=== PATIENT | female | born 1985 | race Caucasian/White ===

== ENCOUNTER 2016-06-27 10:37 | Emergency (ER) | payer BC ==
[~2016-06-27] VITALS: Wt 74.0 kg
[~2016-06-27 10:37] MED LIST: ALBU90AE INHALATION; CALC-176 PO; PRENAT PO
--- NOTE | 2016-06-27 12:29 | ERD ---
ER Documentation Chief Complaint Date/Time DATE: 06/27/16 TIME: 12:25 Chief Complaint left breast pain for 2 days with fever. no drainage but tender on breast HPI This patient is a Ab0 LC 30-year-old female with no significant medical history presenting to the emergency department for bilateral breast pain which is been ongoing in her medically for the past 2 days. She rates her pain an 8 out of 10 on the pain scale. Patient did have a on May 12, 2016 and has been breast-feeding daily ever since. The patient went to see her provider at [facility] this morning. She saw provider Nay Bettencourt nurse practitioner who is concerned for possible mastitis and/ or sepsis. The patient had a temperature of 103.4F in the clinic and was given 1 g of Tylenol. The patient states she is feeling better after arriving in the emergency department. She denies any nausea, vomiting, diarrhea, urinary symptoms, or other symptoms at this time. ROS All systems reviewed and are negative except as per history of present illness. Medications Home Meds Active Scripts Cephalexin* (Keflex*) 500 Mg Capsule, 500 MG PO TID for 7 Days, #21 CAP Prov:VASYL DOS SANTOS PA-C 06/27/16 Reported Medications Albuterol Sulfate (Proair Respiclick) 90 Mcg Aer.pow.ba, 2 PUFFS INHALATION Q6 Y for SHORTNESS OF BREATH, #1 BOTTLE 05/11/16 Calcium Cmb 2-Mag Cmb 12-Vit D3 (Calcium 500) 1 Each Tablet, 1 TAB PO DAILY, TAB 05/11/16 Multivit/Min/Fol Ac/Iron/Pren* ( S*) 1 Tab Tab, 1 TAB PO DAILY, TAB 04/25/16 Allergies Allergies: Coded Allergies: No Known Allergy (Unverified , 09/29/15) PMhx/Soc History of Surgery: Yes ( section) Anesthesia Reaction: No Hx Neurological Disorder: No Hx Respiratory Disorders: No Hx Cardiac Disorders: No Hx Psychiatric Problems: No Hx Miscellaneous Medical Probl: No Hx Alcohol Use: No Hx Substance Use: No Hx Tobacco Use: No FmHx Noncontributory for chief complaint Physical Exam Vitals Vital Signs Date Time Temp Pulse Resp B/P Pulse Ox O2 Delivery O2 Flow Rate FiO2 06/27/16 14:30 98.2 06/27/16 10:40 99.8 121 20 104/66 98 Physical Exam INITIAL VITAL SIGNS: Reviewed by me. GENERAL: Alert and interactive. No acute distress. HEAD: Head is normocephalic and atraumatic. EYES: EOMI. No scleral icterus. No conjunctival injection. ENT: Moist mucosa. NECK: Supple. Full range of motion. RESPIRATORY: Normal respiratory effort. Clear breath sounds bilaterally. No wheezing, rales, or rhonchi. CV: Regular rate and rhythm. Normal S1 S2. No S3 or S4. No murmurs. BREAST: There is tenderness to palpation near the 6 o'clock position of bilateral breasts without erythema, warmth, or edema. ABDOMEN: Soft, non-distended, non-tender. No guarding. No rebound. No masses. EXTREMITIES: No deformity. SKIN: Warm and dry. NEUROLOGIC: Alert and oriented x 4. Speech is normal. Moves all extremities equally. No motor or sensory deficits noted. Result Diagram: 06/27/16 1240 06/27/16 1240 Results 24 hrs Laboratory Tests Test 06/27/16 12:40 Alanine Aminotransferase (ALT/SGPT) 124IU/L Albumin 4.3g/dl Albumin/Globulin Ratio 1.13 Alkaline Phosphatase 126IU/L Anion Gap 19 Aspartate Amino Transf (AST/SGOT) 53IU/L Basophils # 0.010^3/ul Basophils % 0.4% Blood Morphology Comment Blood Urea Nitrogen 15mg/dl Calcium Level 9.1mg/dl Carbon Dioxide Level 24mmol/L Chloride Level 102mmol/L Creatinine 0.67mg/dl Direct Bilirubin 0.00mg/dl Eosinophils # 0.410^3/ul Eosinophils % 3.3% Globulin 3.80g/dl Glucose Level 88mg/dl Hematocrit 40.8% Hemoglobin 13.7g/dl Indirect Bilirubin 1.6mg/dl Lactic Acid Level 0.8mmol/L Lymphocytes # 1.710^3/ul Lymphocytes % 12.6% Mean Corpuscular Hemoglobin 28.0pg Mean Corpuscular Hemoglobin Concent 33.7g/dl Mean Corpuscular Volume 83.2fl Mean Platelet Volume 8.5fl Monocytes # 0.810^3/ul Monocytes % 5.9% Neutrophils # 10.510^3/ul Neutrophils % 77.8% Nucleated Red Blood Cells # 0.010^3/ul Nucleated Red Blood Cells % 0.0/100WBC Platelet Count 93486^3/UL Potassium Level 3.7mmol/L Red Blood Count 4.9010^6/ul Red Cell Distribution Width 13.1% Sodium Level 141mmol/L Total Bilirubin 1.6mg/dl Total Protein 8.1g/dl Urine Bacteria FEW Urine Bilirubin NEGATIVE Urine Clarity CLEAR Urine Color LT. YELLOW Urine Epithelial Cells FEW Urine Glucose NEGATIVE% Urine Hemoglobin TRACE Urine Ketones NEGATIVE Urine Leukocyte Esterase 1+ Urine Microscopic RBC 0-2/HPF Urine Microscopic WBC 0-2/HPF Urine Nitrite NEGATIVE Urine Specific [place] 1.010 Urine Total Protein NEGATIVE Urine Urobilinogen 0.2 E.U./dL Urine pH 6.0 White Blood Count 13.510^3/ul Current Medications Medications (Trade) Dose Ordered Sig/Janice Route PRN Reason Start Time Stop Time Status Last Admin Dose Admin Sodium Chloride 1,000 ml @ 1,000 mls/hr Q1H ONCE IV 06/27/16 12:30 06/27/16 13:29 DC 06/27/16 12:30 Ceftriaxone Sodium (Rocephin) 50 ml @ 100 mls/hr ONCE ONCE IVPB 06/27/16 12:30 06/27/16 12:59 DC 06/27/16 12:34 Procedures/MDM EMERGENCY DEPARTMENT COURSE / MEDICAL DECISION MAKING: This is a 30-year-old female who comes to the emergency room secondary to complaints of bilateral breast pain and fevers for 2 days. The patient was given 1 g IV Rocephin and 1 L normal saline IV fluids in the department. On re-evaluation, the patient was feeling improved. Lab results reviewed and showed slight leukocytosis with left shift. Urinalysis showed results consistent with urinary tract infection. All other lab studies showed no significant acute abnormalities. Radiology: PROCEDURE: XR Chest. CLINICAL INDICATION: Cough and fever. Sepsis. TECHNIQUE: Single frontal view. COMPARISON: None. FINDINGS: The lungs are clear. The heart size is normal. There is no pleural effusion. There is no pneumothorax. IMPRESSION: 1. Normal chest radiograph. PROCEDURE: Bilateral breast ultrasound. CLINICAL INDICATION: Breast pain and tenderness, fibrocystic disease of breast TECHNIQUE: Bilateral whole breast, 4 quadrant and retroareolar, and axillary sonography was performed. COMPARISON: None FINDINGS: No solid or suspicious masses. No areas of architectural distortion. No malignant adenopathy. No dominant cysts are present. IMPRESSION: No sonographic evidence of malignancy in either breast. ACR BIRADS 1 NEGATIVE Routine annual follow-up is suggested. PROCEDURE: US Pelvis. CLINICAL INDICATION: Pelvic pain. TECHNIQUE: The pelvis was evaluated with transabdominal and transvaginal sonography in the axial and sagittal planes. COMPARISON: No prior study is available for comparison. FINDINGS: Uterus: 9.2 x 3.6 x 4.6 cm. Endometrium: 6.4 mm. Right ovary: 3.5 x 2.0 x 2.6 cm. Left ovary: 3.4 x 1.8 x 2.0 cm. Uterine masses: None. Ovarian masses: None. Color Doppler and pulsed Doppler sonography demonstrate normal flow to the ovaries. Other pelvic masses: None. Free fluid: None. IMPRESSION: 1. Normal pelvic ultrasound. The primary diagnosis is urinary tract infection. Secondary diagnosis is bilateral breast pain I have low suspicion for pneumonia, bronchitis, sepsis, breast malignancy, mastitis, or other emergencies at this time. Discharge: I have discussed the lab results and diagnostic findings with the patient and answered any questions or concerns. The patient was discharged with a prescription for cephalexin. The patient was advised to followup with their PMD in 1-2 days and to return to the Emergency Department if there are any new or worsening symptoms. The patient understood and agreed with the diagnosis, treatment and plan. The patient is stable for discharge at this time. Departure Diagnosis: Primary Impression: Urinary tract infection Additional Impression: Breast pain Condition: Stable Additional Instructions: No mas mejor en 2-3 lomeli, regresar. Mas peor en 24 horas, regresear rapidamente. Ir a doctor primario in 5-7 lomeli. Usar instrucciones cuando mike medicamento. VASYL DOS SANTOS PA-C Jun 27, 2016 12:29
[2016-06-27] MEDS ORDERED: SOD CHLORIDE 0.9% 1,000 ML IV ONE (12:30)
[2016-06-27] MEDS ORDERED: CEFTRIAXONE 1 GM/50 ML (PMX) 50 ML IVPB ONE (12:30)
--- NOTE | 2016-06-27 12:49 | RADRPT ---
PROCEDURE: XR Chest. CLINICAL INDICATION: Cough and fever. Sepsis. TECHNIQUE: Single frontal view. COMPARISON: None. FINDINGS: The lungs are clear. The heart size is normal. There is no pleural effusion. There is no pneumothorax. IMPRESSION: 1. Normal chest radiograph. RPTAT: QQ .Florian Hernandez MD, MD Date Time Electronically viewed and signed by .Florian Hernandez MD, on 06/27/2016 12:48 .R/
[2016-06-27 13:12] LABS: ALBUMIN 4.3 g/dl (3.3-4.9)
[2016-06-27 13:13] LABS: BASOPHILS % 0.4 % (0.0-2.0); EOSINOPHILS # 0.4 10^3/ul (0.0-0.5); EOSINOPHILS % 3.3 % (0.0-7.0); HEMATOCRIT 40.8 % (37.0-47.0); HEMOGLOBIN 13.7 g/dl (12.0-16.0); LYMPHOCYTES # 1.7 10^3/ul (0.8-2.9); LYMPHOCYTES % 12.6 % (15.0-51.0); MEAN CORPUSCULAR HGB CONC 33.7 g/dl (32.0-37.0); MEAN CORPUSCULAR VOLUME 83.2 fl (82.0-101.0); MEAN PLATELET VOLUME 8.5 fl (7.4-10.4); MONOCYTE # 0.8 10^3/ul (0.3-0.9); MONOCYTES % 5.9 % (0.0-11.0); NEUTROPHIL # 10.5 10^3/ul (1.6-7.5); NEUTROPHILS % 77.8 % (39.0-77.0); PLATELET COUNT 251 10^3/UL (140-440); POTASSIUM 3.7 mmol/L (3.5-5.1); RED CELL DISTRIBUTION WIDTH 13.1 % (11.5-14.5); UNCORRECTED WBC 13.5 10^3/ul (4.8-10.8); WHITE BLOOD COUNT 13.5 10^3/ul (4.8-10.8)
[2016-06-27 13:15] LABS: ALBUMIN/GLOBULIN RATIO 1.13; BILIRUBIN,INDIRECT 1.6 mg/dl (0-1.1); BILIRUBIN,TOTAL 1.6 mg/dl (0.2-1.3); CREATININE 0.67 mg/dl (0.44-1.00); TOTAL PROTEIN 8.1 g/dl (6.1-8.1)
[2016-06-27 13:16] LABS: CALCIUM 9.1 mg/dl (8.4-10.2)
[2016-06-27 13:23] LABS: CONDITION 1
--- NOTE | 2016-06-27 13:32 | RADRPT ---
PROCEDURE: US Pelvis. CLINICAL INDICATION: Pelvic pain. TECHNIQUE: The pelvis was evaluated with transabdominal and transvaginal sonography in the axial a nd sagittal planes. COMPARISON: No prior study is available for comparison. FINDINGS: Uterus: 9.2 x 3.6 x 4.6 cm. Endometrium: 6.4 mm. Right ovary: 3.5 x 2.0 x 2.6 cm. Left ovary: 3.4 x 1.8 x 2.0 cm. Uterine masses: None. Ovarian masses: None. Color Doppler and pulsed Doppler sonography demonstrate normal flow to the ova gloria. Other pelvic masses: None. Free fluid: None. IMPRESSION: 1. Normal pelvic ultrasound. RPTAT: QQ .Florian Hernandez MD, MD Date Time Electronically viewed and signed by .Florian Hernandez MD, on 06/27/2016 13:32 .R/
--- NOTE | 2016-06-27 13:37 | RADRPT ---
PROCEDURE: Bilateral breast ultrasound. CLINICAL INDICATION: Breast pain and tenderness, fibrocystic disease of breast TECHNIQUE: Bilateral whole breast, 4 quadrant and retroareolar, and axillary sonography was perfor med. COMPARISON: None FINDINGS: No solid or suspicious masses. No areas of architectural distortion. No malignant adenopathy. No dominant cysts are present. IMPRESSION: No sonographic evidence of malignancy in either breast. ACR BIRADS 1 NEGATIVE Routine annual follow-up is suggested. RPTAT: EE .María Sims MD, Date Time Electronically viewed and signed by .Mraía Sims MD, MD on 06/27/2016 13:36 .F/
[2016-06-27 13:42] LABS: ADD UMIC YES; URINE BILIRUBIN (Dip) NEGATIVE (NEGATIVE); URINE BLOOD (Dip) TRACE (NEGATIVE); URINE COLOR LT. YELLOW (YELLOW); URINE GLUCOSE (Dip) NEGATIVE (NEGATIVE); URINE KETONES (Dip) NEGATIVE (NEGATIVE); URINE LEUKOCYTE ESTERASE (Dip) 1+ (NEGATIVE); URINE NITRITE (Dip) NEGATIVE (NEGATIVE); URINE TOTAL PROTEIN (Dip) NEGATIVE (NEGATIVE); URINE UROBILINOGEN (Dip) 0.2 E.U./dL (0.1-1.0)
[2016-06-27 14:10] LABS: BACTERIA,URINE FEW; URINE RBCS 0-2 /HPF (0)
[2016-06-27] MEDS ORDERED: CEPH-443 PO (14:20)
[2016-06-27 14:30] VITALS: TEMP 98.2
== END 2016-06-27 14:30 | disposition home or self-care (01) ==
LOC: FTE 10:37
DX: N39.0 Urinary tract infection, site not specified (principal); R10.2 Pelvic and perineal pain
CPT/HCPCS: 36415; 71010; 76641; 76830; 76856; 80053; 81001; 83605; 85025; 87086; 96374; 99285; J0696; J7030; 81003

== ENCOUNTER 2016-09-21 15:05 | Emergency (ER) | payer BC ==
[~2016-09-21] VITALS: Ht 157.5 cm; Wt 77.5 kg
[~2016-09-21 15:05] MED LIST changes: +CEPH-443 PO
[2016-09-21 15:47] VITALS: Ht 157.5 cm; Wt 77.5 kg
[2016-09-21] MEDS ORDERED: IBUP-1542 PO (17:45)
--- NOTE | 2016-09-21 17:53 | ERD ---
ER Documentation Chief Complaint Date/Time DATE: 09/21/16 TIME: 17:46 Chief Complaint PT HAS ST AND JERNIGAN FEVER 101.6 HPI 31-year-old female complaining of sore throat 3 days, fever 2 days, and headache started today. She reports pain when swallowing. Headache is localized in the forehead and bilateral temporal region. She has photophobia. She took Tylenol at home for fever and pain, last dose was 4 hours ago. Patient reports nausea, but no vomiting or diarrhea. Denies cough or runny nose. Denies neck pain. Patient also reports feeling tired. ROS All systems reviewed and are negative except as per history of present illness. Medications Home Meds Active Scripts Ibuprofen* (Motrin*) 600 Mg Tab, 600 MG PO Q6H Y for PAIN AND OR ELEVATED TEMP, #30 TAB Prov:ANTHONY NETTLES [employer]SEM[employer] 09/21/16 Cephalexin* (Keflex*) 500 Mg Capsule, 500 MG PO TID for 7 Days, #21 CAP Prov:VASYL DOS SANTOS PA-C 06/27/16 Reported Medications Albuterol Sulfate (Proair Respiclick) 90 Mcg Aer.pow.ba, 2 PUFFS INHALATION Q6 Y for SHORTNESS OF BREATH, #1 BOTTLE 05/11/16 Calcium Cmb 2-Mag Cmb 12-Vit D3 (Calcium 500) 1 Each Tablet, 1 TAB PO DAILY, TAB 05/11/16 Multivit/Min/Fol Ac/Iron/Pren* ( S*) 1 Tab Tab, 1 TAB PO DAILY, TAB 04/25/16 Allergies Allergies: Coded Allergies: No Known Allergy (Unverified , 09/29/15) PMhx/Soc Medical and Surgical Hx: pt denies Medical Hx History of Surgery: Yes ( section) Anesthesia Reaction: No Hx Neurological Disorder: No Hx Respiratory Disorders: No Hx Cardiac Disorders: No Hx Psychiatric Problems: No Hx Miscellaneous Medical Probl: No Hx Alcohol Use: No Hx Substance Use: No Hx Tobacco Use: No Physical Exam Vitals Vital Signs Date Time Temp Pulse Resp B/P Pulse Ox O2 Delivery O2 Flow Rate FiO2 09/21/16 15:47 101.6 130 17 119/70 97 Physical Exam General impression: Well-developed, well-nourished. Alert, oriented, in no acute distress Head: Normocephalic, atraumatic. Eyes: PERRL, EOM normal. Sclerae are normal. Conjunctiva not injected. ENT: Nasal mucosa, oral mucosa and oropharynx are normal. No pharyngeal erythema, swelling, or exudates. Neck: Supple, nontender. No lymphadenopathy. No nuchal rigidity. Respiration: Normal respiratory effort. Lungs clear to auscultate bilaterally. No wheezes, rales or rhonchi. Cardiovascular: Regular rate and rhythm. No murmurs or extra heart sounds. Abdomen: Abdomen normal to inspection. Nontender. No masses or organomegaly. Bowel sounds normal. Back: Normal to inspection. No midline spine tenderness. No CVA tenderness. Extremities: Extremities normal to inspection, nontender. ROM normal. Neuro: Mental status normal, speech normal. MOLD SWABBER grossly intact. Skin: Normal turgor. No rash or lesions. Psych: Normal mood and affect. Results 24 hrs Current Medications Medications (Trade) Dose Ordered Sig/Janice Route PRN Reason Start Time Stop Time Status Last Admin Dose Admin Ibuprofen (Motrin) 600 mg ONCE ONCE PO 09/21/16 18:00 09/21/16 18:01 Procedures/MDM 31-year-old female presented ED was sore throat, fever, and headache. Ibuprofen given to the patient in the ED for fever and pain. I doubt that she has strep pharyngitis. Given her symptoms and exam findings, I suspect infectious mononucleosis. Low suspicion for peritonsillar or retropharyngeal abscess. Patient appears well, stable for discharge and outpatient management. Patient is advised to increase fluid intake, and rest. Medical decision making shared with patient and family. Education provided to patient and family. Patient and family expressed understanding of the plan. Medications on discharge: Ibuprofen. Follow-up: Primary care provider in 2-3 days or return to ED if worse. Departure Diagnosis: Primary Impression: Fever Fever type: unspecified Qualified Code: R50.9 - Fever, unspecified fever cause Additional Impression: Pharyngitis Pharyngitis/tonsillitis etiology: unspecified etiology Qualified Code: J02.9 - Pharyngitis, unspecified etiology Condition: Stable Patient Instructions: Fever Control (Adult), Pharyngitis, Viral Referrals: [facility] Usted se jernigan hecho un examen mdico de control que le indica que no est en martina condicin que requiera tratamiento urgente en el Departamento de Emergencia. Un estudio ms profundo y el tratamiento de michel condicin pueden esperar sin ningn riesgo hasta que usted sea atendida/o en el consultorio de michel mdico o martina cl miriam. Es responsabilidad suya arreglar martina ramiro para el seguimiento del zita. MANEJO DE CONDICIONES NO URGENTES EN EL FUTURO 1) Si usted tiene un mdico de atencin primaria: Usted debera llamar a michel mdico de atencin primaria antes de venir al departamento de emergencia. Despus de las horas de consultorio, michel doctor o michel asociado/a est disponible por telfono. El mdico o enfermero de macarena en el servicio telefnico puede asesorarle por yves medio para atender el problema, o zita contrario se puede programar martina ramiro. 2) Si usted no tiene un mdico de atencin primaria: Llame al mdico o clnica de referencia que aparece abajo suyapa las horas de consultorio para hacer martina ramiro para que le vean. CLINICAS: [facility] [phone] [facility] [phone] [facility]. [facility] [phone] [facility]. [place] [id number] [phone] [facility]. [place] [id number] [phone] [facility]. [phone] [address] Additional Instructions: Llame al doctor MAANA y tom martina RAMIRO PARA DENTRO DE 2-3 HAMMER.Dgale a la secretaria que nosotros le instruimos hacer esta ramiro.Avise o llame si michel condicin se empeora antes de la ramiro. Regresa aqui si peor o no mejor. ANTHONY NETTLES. DAVID Sep 21, 2016 17:53
[2016-09-21] MEDS ORDERED: IBUPROFEN 600 MG TAB PO ONE (18:00)
[2016-09-21 18:18] VITALS: BP 102/68; RESP 18
[2016-09-21] MEDS ORDERED: ACETAMINOPHEN 500 MG TAB PO STA (18:18)
[2016-09-21 19:26] VITALS: PULSE 118; TEMP 99.4
== END 2016-09-21 19:27 | disposition home or self-care (01) ==
LOC: FTE 15:05
DX: R50.9 Fever, unspecified (principal); J02.9 Acute pharyngitis, unspecified
CPT/HCPCS: 99283; Z7610

== ENCOUNTER 2017-05-11 11:59 | Inpatient (IN) | payer BC ==
[2017-05-11] VITALS (11 sets, daily range): BP systolic 95–109; BP diastolic 53–70; PULSE 64–87; RESP 13–32; Ht 157.5 cm; Wt 75.1 kg
[~2017-05-11] VITALS: Ht 157.5 cm; Wt 75.1 kg
[~2017-05-11 11:59] MED LIST changes: +IBUP-1542 PO; +LIDOCAINE 2% (SDV) 5 ML INJ ONE; +ONDANSETRON 4 MG INJ ONE; +ROCURONIUM 50 MG INJ ONE
[2017-05-11] MEDS ORDERED: ALBU18HF INHALATION (12:18)
[2017-05-11] MEDS ORDERED: PROPOFOL 100 ML ONE (15:38)
[2017-05-11] MEDS ORDERED: BUPIVACAINE 0.25% (MPF) 30 ML INJ ONE (15:40)
[2017-05-11] MEDS ORDERED: KETOROLAC 30 MG INJ IV PRN (16:00)
[2017-05-11] MEDS ORDERED: EPHEDrine SULFATE 50 MG/5 ML SYG IV PRN (16:00)
[2017-05-11] MEDS ORDERED: DIPHENHYDRAMINE 50 MG INJ IV PRN (16:00)
[2017-05-11] MEDS ORDERED: LABETALOL HCL 20MG INJ IV PRN (16:00)
[2017-05-11] MEDS ORDERED: MEPERIDINE 25 MG INJ IV PRN (16:00)
[2017-05-11] MEDS ORDERED: HYDROmorphONE (0.2 MG/ML) 10ML SYG IV PRN ×3 (16:00)
[2017-05-11] MEDS ORDERED: MIDAZOLAM 1 MG/ML 2 ML INJ IV PRN (16:00)
[2017-05-11] MEDS ORDERED: FENTAnyl 50 MCG/ML VIAL IV PRN ×3 (16:00)
[2017-05-11] MEDS ORDERED: OXYCODONE/ACETAMINOPHEN (5/325) TAB PO PRN ×2 (16:00)
[2017-05-11] MEDS ORDERED: hydrALAzine 20 MG INJ IV PRN (16:00)
[2017-05-11] MEDS ORDERED: METOCLOPRAMIDE 10 MG INJ IV PRN (16:00)
[2017-05-11] MEDS ORDERED: ONDANSETRON 4 MG INJ IV PRN (16:00)
[2017-05-11] MEDS ORDERED: ACETAMINOPHEN 1000MG/100ML IV 100 ML ONE (16:08)
[2017-05-11] MEDS: CEFAZOLIN 2 GM/50 ML (PMX) 50 ML IVPB SCH (16:10)
[2017-05-11] MEDS ORDERED: DEXAMETHASONE 4 MG/ML 1 ML INJ ONE (16:11)
[2017-05-11] MEDS ORDERED: CEFAZOLIN 1 GM INJ ONE (16:11)
--- NOTE | 2017-05-11 17:14 | OPR ---
Date/Time of Note Date/Time of Note DATE: 05/11/17 TIME: 17:09 Operative Report Procedure Date: May 11, 2017 Preoperative Diagnosis thyroid goiter with pressure symptoms and problems with swallowing Postoperative Diagnosis same Operation/Procedure Performed 1. total thyroidectomy 2. therapeutic injection subcutaneous local anesthesia Surgeon see signature line Marketing Project Lead cher elaine Anesthesia Type: general Estimated Blood Loss: 10 - 50 ml's Transfusion none Specimen total thyroid Grafts/Implants none Complications none Pt Condition Post Procedure: stable Indications This is a 31-year-old female with right thyroid nodule and goiter with pressure symptoms and difficulty breathing and swallowing. She requests surgical excision of her thyroid. Risks alternatives benefits and percent were discussed the patient. Patient expressed understanding consents to the operation. Procedure Description Patient is taken to the OR and prepped and draped in usual sterile fashion. Surgical timeout was performed. IV antibiotics given. Collar incision is made with a 15 blade. Dissection Carrs carried onto the platysma the platysma was divided and superior inferior platysmal flaps are created. Strap muscles were divided in the midline and retracted. On initial inspection right thyroid nodules observed with large goiter on the right side greater than the left also there is additional nodules on the left side of the thyroid which are firm. Careful dissection is performed initially on the right side. The middle thyroidal vein was ligated with a hand-held LigaSure. Superior pole and inferior pole were mobilized. Careful attention was paid to keep the recurrent laryngeal nerve out of harm's way. Ligament of Heredia was divided. Further dissection with hand-held LigaSure was performed juxtaposed to the capsule in order to avoid any injury to the nerves. The right thyroid was then resected and divided from the isthmus as there were multiple adhesions posteriorly to the trachea. This was sent as specimen with single short right superior double short right inferior poles with silk suture markings. Attention was then paid to the left thyroid. Superior and inferior poles were carefully dissected out including the ligament of Heredia was divided. The middle thyroidal vein was divided with a hand-held LigaSure. Careful dissection was performed juxtaposed to the thyroid to avoid any recurrent laryngeal nerve injury. The isthmus and left thyroid was sent and marked with single long for right superior pole double long for right inferior pole. There is good hemostasis in the surgical site. The surgical bed was irrigated with water and a Valsalva maneuver up to 40 cm of water was performed. There is no evidence of any leaking or bleeding. The irrigation was suctioned out. The strap muscles were reapproximated with interrupted 3-0 Vicryl. The platysma was reapproximated with interrupted 3-0 Vicryl. Skin was closed in a multilayer fashion with interrupted 3-0 Vicryl and running 4-0 Monocryl. Therapeutic subcutaneous local anesthesia was injected throughout the incision site Willy LAINEZ May 11, 2017 17:14
[2017-05-11] MEDS ORDERED: HYDROCODONE/APAP (5/325) TAB PO PRN (17:30)
[2017-05-11] MEDS ORDERED: MEPERIDINE 25 MG INJ ONE (17:33)
[2017-05-11] MEDS ORDERED: ONDANSETRON 4 MG INJ ONE (17:33)
[2017-05-11 18:16] LABS: BASOPHILS % 0.3 % (0.0-2.0); EOSINOPHILS # 0.1 10^3/ul (0.0-0.5); EOSINOPHILS % 1.2 % (0.0-7.0); HEMATOCRIT 34.4 % (37.0-47.0); HEMOGLOBIN 11.8 g/dl (12.0-16.0); LYMPHOCYTES # 1.1 10^3/ul (0.8-2.9); LYMPHOCYTES % 17.9 % (15.0-51.0); MEAN CORPUSCULAR HGB CONC 34.3 g/dl (32.0-37.0); MEAN CORPUSCULAR VOLUME 81.5 fl (82.0-101.0); MEAN PLATELET VOLUME 9.6 fl (7.4-10.4); MONOCYTE # 0.2 10^3/ul (0.3-0.9); MONOCYTES % 2.7 % (0.0-11.0); NEUTROPHIL # 4.6 10^3/ul (1.6-7.5); NEUTROPHILS % 77.7 % (39.0-77.0); PLATELET COUNT 228 10^3/UL (140-415); RED BLOOD COUNT 4.22 10^6/ul (4.20-5.40); RED CELL DISTRIBUTION WIDTH 12.7 % (11.5-14.5); WHITE BLOOD COUNT 5.9 10^3/ul (4.8-10.8)
[2017-05-11 18:38] LABS: ALBUMIN 3.2 g/dl (3.3-4.9); ALBUMIN/GLOBULIN RATIO 1.06; BILIRUBIN,INDIRECT 0.3 mg/dl (0-1.1); BILIRUBIN,TOTAL 0.3 mg/dl (0.2-1.3); CALCIUM 8.2 mg/dl (8.4-10.2); CREATININE 0.57 mg/dl (0.44-1.00); POTASSIUM 4.2 mmol/L (3.5-5.1); TOTAL PROTEIN 6.2 g/dl (6.1-8.1)
[2017-05-11] MEDS: SOD CHLORIDE 0.9% 1,000 ML IV SCH (19:00)
[2017-05-11] MEDS: morphine 2 MG INJ IV PRN (19:50)
--- NOTE | 2017-05-11 19:54 | HP ---
Date/Time of Note Date/Time of Note DATE: 05/11/17 TIME: 19:38 Assessment/Plan VTE Prophylaxis VTE Prophylaxis Intervention: other Lines/Catheters IV Catheter Type (from Nrsg): Peripheral IV Assessment/Plan Assessment/Plan 1. total thyroidectomy - PER SURGERY - ivf - pain meds 2.Asthma [address] Horton/staff HPI/ROS Admit Date/Time Admit Date/Time May 11, 2017 at 17:08 ROS This is a 31-year-old female with right thyroid nodule and goiter with pressure symptoms and difficulty breathing and swallowing. PMH/Family/Social Past Medical History asthma Social History Alcohol Use: none Smoking Status: Never smoker Drug Use: none Exam/Review of Systems Vital Signs Vitals Vital Signs Date Time Temp Pulse Resp B/P Pulse Ox O2 Delivery O2 Flow Rate FiO2 05/11/17 18:45 87 18 108/67 100 Room Air 05/11/17 17:28 98.2 Exam Constitutional: alert, well developed Neck: other (DDI) Respiratory: diminished breath sounds, normal air movement Cardiovascular: nl pulses Gastrointestinal: non-tender, soft Labs Result Diagram: 05/11/17 1808 05/11/17 180 Medications Medications Current Medications Cefazolin Sodium/ Dextrose (Ancef 2 Gm/50 ml (Pmx)) 50 ml @ 100 mls/hr Q8H IVPB ; Start 05/11/17 at 17:30; Stop 05/12/17 at 17:29 Morphine Sulfate (morphine) 2 mg Q2H PRN IV PAIN LEVEL 6-10; Start 05/11/17 at 17:30 Acetaminophen/ Hydrocodone Bitart 1 tab 1 tab Q6H PRN PO PAIN LEVEL 6-10; Start 05/11/17 at 17:30 Sodium Chloride (NS) 1,000 ml @ 100 mls/hr Q10H IV ; Start 05/11/17 at 17:08 THERESA RIVERO May 11, 2017 19:48
[2017-05-11] MEDS: ALBUTEROL 0.083% (NEB) 2.5 MG/3 ML AMP HHN SCH (20:53)
[2017-05-12] MEDS ORDERED: ONDANSETRON 4 MG INJ IV PRN
[2017-05-12] MEDS: morphine 2 MG INJ IV PRN (00:06)
[2017-05-12] MEDS: SOD CHLORIDE 0.9% 1,000 ML IV SCH ×2 (00:07→13:08)
[2017-05-12 00:34] VITALS: BP 110/68; RESP 20
[2017-05-12] MEDS: ALBUTEROL 0.083% (NEB) 2.5 MG/3 ML AMP HHN SCH ×3 (01:18→12:46)
[2017-05-12] MEDS: CEFAZOLIN 2 GM/50 ML (PMX) 50 ML IVPB SCH ×2 (01:25→09:22)
[2017-05-12] MEDS: ACETAMINOPHEN 325 MG TAB PO PRN ×2 (01:34→07:06)
[2017-05-12 06:00] VITALS: BP 117/62; PULSE 96; RESP 18
[2017-05-12 06:18] LABS: ABNORMAL IP MESSAGE 1; BASOPHILS % 0.2 % (0.0-2.0); HEMATOCRIT 39.4 % (37.0-47.0); HEMOGLOBIN 13.2 g/dl (12.0-16.0); LYMPHOCYTES # 0.5 10^3/ul (0.8-2.9); MEAN CORPUSCULAR HEMOGLOBIN 27.4 pg (29.0-33.0); MEAN CORPUSCULAR HGB CONC 33.5 g/dl (32.0-37.0); MEAN CORPUSCULAR VOLUME 81.9 fl (82.0-101.0); MEAN PLATELET VOLUME 10.2 fl (7.4-10.4); MONOCYTE # 0.2 10^3/ul (0.3-0.9); NEUTROPHIL # 4.2 10^3/ul (1.6-7.5); NEUTROPHILS % 85.6 % (39.0-77.0); PLATELET COUNT 318 10^3/UL (140-415); RED BLOOD COUNT 4.81 10^6/ul (4.20-5.40); RED CELL DISTRIBUTION WIDTH 12.3 % (11.5-14.5); WHITE BLOOD COUNT 4.9 10^3/ul (4.8-10.8)
[2017-05-12 06:39] LABS: ALBUMIN 3.9 g/dl (3.3-4.9); ALBUMIN/GLOBULIN RATIO 1.11; BILIRUBIN,INDIRECT 0.3 mg/dl (0-1.1); BILIRUBIN,TOTAL 0.3 mg/dl (0.2-1.3); CALCIUM 7.9 mg/dl (8.4-10.2); CREATININE 0.55 mg/dl (0.44-1.00); POTASSIUM 3.6 mmol/L (3.5-5.1); TOTAL PROTEIN 7.4 g/dl (6.1-8.1)
[2017-05-12 06:57] LABS: POSITIVE DIFF @See below
[2017-05-12 08:01] VITALS: BP 104/63; PULSE 94; RESP 14
--- NOTE | 2017-05-12 11:38 | PN ---
Date/Time of Note Date/Time of Note DATE: 05/12/17 TIME: 11:38 Assessment/Plan VTE Prophylaxis VTE Prophylaxis Intervention: SCD's Lines/Catheters IV Catheter Type (from Nrs): Peripheral IV Assessment/Plan Chief Complaint/Hosp Course s/p total thyroidectomy for thyroid goiter and right thyroid nodule with symptoms of pressure and difficulty swallowing Problems: Assessment/Plan d/c today Subjective 24 Hr Interval Summary Free Text/Dictation doing well Exam/Review of Systems Vital Signs Vitals Vital Signs Date Time Temp Pulse Resp B/P Pulse Ox O2 Delivery O2 Flow Rate FiO2 05/12/17 09:13 94 18 94 21 05/12/17 08:01 98.1 104/63 Room Air Intake and Output 05/11/17 05/11/17 05/12/17 14:59 22:59 06:59 Intake Total 700 ml 1150 ml Output Total 310 ml Balance 390 ml 1150 ml Exam c/d/i Results Result Diagram: 05/12/17 0432 05/12/17 0432 Results 24 hrs Laboratory Tests Test 05/11/17 18:08 05/12/17 04:32 White Blood Count 5.9 # 4.9 Red Blood Count 4.22 4.81 Hemoglobin 11.8 L 13.2 Hematocrit 34.4 L 39.4 Mean Corpuscular Volume 81.5 L 81.9 L Mean Corpuscular Hemoglobin 28.0 L 27.4 L Mean Corpuscular Hemoglobin Concent 34.3 33.5 Red Cell Distribution Width 12.7 12.3 Platelet Count 228 318 # Mean Platelet Volume 9.6 10.2 Neutrophils % 77.7 H 85.6 H Lymphocytes % 17.9 11.0 L Monocytes % 2.7 3.0 Eosinophils % 1.2 0.0 Basophils % 0.3 0.2 Nucleated Red Blood Cells % 0.0 0.0 Neutrophils # 4.6 4.2 Lymphocytes # 1.1 0.5 L Monocytes # 0.2 L 0.2 L Eosinophils # 0.1 0.0 Basophils # 0.0 0.0 Nucleated Red Blood Cells # 0.0 0.0 Sodium Level 141 143 Potassium Level 4.2 3.6 Chloride Level 107 104 Carbon Dioxide Level 26 27 Anion Gap 12 16 Blood Urea Nitrogen 9 8 Creatinine 0.57 0.55 Glucose Level 98 122 Calcium Level 8.2 L 7.9 L Total Bilirubin 0.3 0.3 Direct Bilirubin 0.00 0.00 Indirect Bilirubin 0.3 0.3 Aspartate Amino Transf (AST/SGOT) 19 22 Alanine Aminotransferase (ALT/SGPT) 44 47 Alkaline Phosphatase 90 92 Total Protein 6.2 7.4 # Albumin 3.2 L 3.9 Globulin 3.00 3.50 H Albumin/Globulin Ratio 1.06 1.11 Medications Medications Current Medications Cefazolin Sodium/ Dextrose (Ancef 2 Gm/50 ml (Pmx)) 50 ml @ 100 mls/hr Q8H IVPB Last administered on 05/12/17 09:22; Admin Dose 100 MLS/HR; Start at 17:30; Stop 05/12/17 at 17:29 Morphine Sulfate (morphine) 2 mg Q2H PRN IV PAIN LEVEL 6-10 Last administered on 05/12/17 00:06; Admin Dose 2 MG; Start 05/11/17 at 17:30 Acetaminophen/ Hydrocodone Bitart 1 tab 1 tab Q6H PRN PO PAIN LEVEL 6-10; Start 05/11/17 at 17:30 Sodium Chloride (NS) 1,000 ml @ 100 mls/hr Q10H IV Last administered on 00:07; Admin Dose 100 MLS/HR; Start 05/11/17 at 17:08 Ondansetron HCl (Zofran Inj) 4 mg Q6H PRN IV NAUSEA AND/OR VOMITING; Start 05/12/17 at 00:00 Acetaminophen (Tylenol Tab) 650 mg Q6H PRN PO PAIN AND OR ELEVATED TEMP Last administered on 05/12/17 07:06; Admin Dose 650 MG; Start 05/12/17 at 00:00 Willy LAINEZ May 12, 2017 11:38
--- NOTE | 2017-05-12 20:30 | DS ---
Date/Time of Note Date/Time of Note DATE: 05/12/17 TIME: 20:28 Discharge Summary Admission/Discharge Info Admit Date/Time May 11, 2017 at 17:08 Discharge Date/Time May 12, 2017 at 14:50 Patient Condition: Stable Hx of Present Illness This is a 31-year-old female with right thyroid nodule and goiter with pressure symptoms and difficulty breathing and swallowing. Patient underwent total thyroidectomy by Dr. Lopze. 2. The patient experienced significant pain and patient is being admitted for further evaluation and management. Hospital Course s/p total thyroidectomy Dr. Lopez on 05/11 for thyroid goiter and right thyroid nodule with symptoms of pressure and difficulty swallowing. Patient was discharged home by Dr. Lopez. Home Meds Reported Medications Albuterol Sulfate* (Ventolin HFA*) 18 Gm Hfa.aer.ad, 2 PUFF INHALATION Q6H Y for WHEEZING AND RESP DISTRESS, #1 INHALER 05/11/17 Discontinued Reported Medications Albuterol Sulfate (Proair Respiclick) 90 Mcg Aer.pow.ba, 2 PUFFS INHALATION Q6 Y for SHORTNESS OF BREATH, #1 BOTTLE 05/11/16 Calcium Cmb 2-Mag Cmb 12-Vit D3 (Calcium 500) 1 Each Tablet, 1 TAB PO DAILY, TAB 05/11/16 Multivit/Min/Fol Ac/Iron/Pren* ( S*) 1 Tab Tab, 1 TAB PO DAILY, TAB 04/25/16 Discontinued Scripts Ibuprofen* (Motrin*) 600 Mg Tab, 600 MG PO Q6H Y for PAIN AND OR ELEVATED TEMP, #30 TAB Prov:[employer] 09/21/16 Cephalexin* (Keflex*) 500 Mg Capsule, 500 MG PO TID for 7 Days, #21 CAP Prov:VASYL DOS SANTOS PA-C 06/27/16 Follow-up Plan Follow-up with Dr. Lopez in 1 week Primary Care Provider Not On Staff Doctor Pending Labs Laboratory Tests Test 05/12/17 04:32 White Blood Count 4.910^3/ul (4.8-10.8) Red Blood Count 4.8110^6/ul (4.20-5.40) Hemoglobin 13.2g/dl (12.0-16.0) Hematocrit 39.4% (37.0-47.0) Mean Corpuscular Volume 81.9fl (82.0-101.0) Mean Corpuscular Hemoglobin 27.4pg (29.0-33.0) Mean Corpuscular Hemoglobin Concent 33.5g/dl (32.0-37.0) Red Cell Distribution Width 12.3% (11.5-14.5) Platelet Count 05621^3/UL (140-415) Mean Platelet Volume 10.2fl (7.4-10.4) Neutrophils % 85.6% (39.0-77.0) Lymphocytes % 11.0% (15.0-51.0) Monocytes % 3.0% (0.0-11.0) Eosinophils % 0.0% (0.0-7.0) Basophils % 0.2% (0.0-2.0) Nucleated Red Blood Cells % 0.0/100WBC (0.0-0.0) Neutrophils # 4.210^3/ul (1.6-7.5) Lymphocytes # 0.510^3/ul (0.8-2.9) Monocytes # 0.210^3/ul (0.3-0.9) Eosinophils # 0.010^3/ul (0.0-0.5) Basophils # 0.010^3/ul (0.0-0.1) Nucleated Red Blood Cells # 0.010^3/ul (0.0-0.0) Sodium Level 143mmol/L (135-144) Potassium Level 3.6mmol/L (3.5-5.1) Chloride Level 104mmol/L (97-110) Carbon Dioxide Level 27mmol/L (21-31) Anion Gap 16 (8-16) Blood Urea Nitrogen 8mg/dl (7-20) Creatinine 0.55mg/dl (0.44-1.00) Glucose Level 122mg/dl (70-220) Calcium Level 7.9mg/dl (8.4-10.2) Total Bilirubin 0.3mg/dl (0.2-1.3) Direct Bilirubin 0.00mg/dl (0.00-0.20) Indirect Bilirubin 0.3mg/dl (0-1.1) Aspartate Amino Transf (AST/SGOT) 22IU/L (15-46) Alanine Aminotransferase (ALT/SGPT) 47IU/L (13-69) Alkaline Phosphatase 92IU/L (42-121) Total Protein 7.4g/dl (6.1-8.1) Albumin 3.9g/dl (3.3-4.9) Globulin 3.50g/dl (1.3-3.2) Albumin/Globulin Ratio 1.11 XIOMY SOSA May 12, 2017 20:30
== END 2017-05-12 14:50 | disposition home or self-care (01) | DRG 627 ==
LOC: SDS 11:59 → EDSTATUS 15:30 → REC 17:08 → SDS 17:47 → MS1 18:33
PROVIDERS: ADMIT Surgery; ATTEND Surgery
PROC: 0GTK0ZZ Resection of Thyroid Gland, Open Approach (ICD-10-PCS; principal; 2017-05-11 16:00)
DX: E04.9 Nontoxic goiter, unspecified (principal); J45.909 Unspecified asthma, uncomplicated; R76.11 Nonspecific reaction to tuberculin skin test without active tuberculosis
CPT/HCPCS: 80053; 84703; 85025; 88307; 94640; 94664; J0131; J0690; J1100; J2175; J2270; J2405; J3010; J7030